=== PATIENT | female | born 1945 | race Caucasian/White ===

== ENCOUNTER 2021-05-16 09:51 | Inpatient (IN) | payer OTHER ==
[~2021-05-16] VITALS: Ht 160 cm; Wt 53.5 kg
[~2021-05-16 09:51] MED LIST: ARICEPT10 MG PO; CEFDINIR300 MG PO; CHILDREN'S100 MG/54 PO; CRESTOR10 MG PO; ELIQUIS5 MG PO; LOPRESSOR 25 MG25 MG PO; LOPRESSOR50 MG PO; MULTAQ 400 MG400 MG PO; PROVENTIL HFA6.7 GM INH; SEROQUEL25 MG PO; SPIRIVA RESPIMAT4 GM INH
[2021-05-16 10:13] LABS: HEMOGLOBIN 9.6 gm/dl (12.3-15.3); RED BLOOD COUNT 3.04 M/UL (4.00-5.10); WHITE BLOOD COUNT 9.7 K/UL (4.5-11.0)
[2021-05-16] MEDS ORDERED: METOPROLOL TART25 MG PO (12:58)
[2021-05-16] MEDS ORDERED: CARBIDOPA-LEVO1 EAC7 PO (20:36)
[2021-05-16] MEDS ORDERED: ASPIRIN EC81 MG PO (20:37)
--- NOTE | 2021-05-17 04:20 | NUR ---
APPROX. 0240: NOTIFIED PRODUCT/INDUSTRY CONSULTANT FOR NEED OF PCU BED FOR PT. APPOX. 0326: ATTEMPTED TO CALL REPORT TO U. APPROX. 0342: CALLED REPORT TO [facility] ON PCU. AWAITING ROOM TO BE CLEANED. APPROX. [id number]: TRANSFERRED PT TO PCU, ROOM 6102. PT STABLE AT THE TIME OF TRANSFER.
--- NOTE | 2021-05-17 04:41 | NUR ---
PATIENT TRANSFERRED FROM MED SURG TO PCU FOR AFIB RVR. PATIENTS INTIAL VITALS WERE HR 92, BP: 97/70 (76), RR 16, O2 AT 94 ON 3.5 L. PATIENT IS ALERT AND ORIENTED AT THE TIME OF ASSESSMENT. BED ALARM IS ON. CLOSE TO NURSES STATION. BED IS LOCKED AND IN LOWEST POSITION. CALL LIGHT IS WITHIN REACH. NON SLIP SOCKS ARE ON. AMIO DRIP WAS STARTED AND PATIENT IS IN BED RESTING.
[2021-05-17 08:30] LABS: HEMOGLOBIN 9.7 gm/dl (12.3-15.3); RED BLOOD COUNT 3.06 M/UL (4.00-5.10); WHITE BLOOD COUNT 10.1 K/UL (4.5-11.0)
[2021-05-17 08:53] LABS: BUN/CREATININE RATIO 29 (0-10)
[2021-05-18 01:57] LABS: ACINETOBACTER BAUMANNII Not Detected (Negative); CANDIDA ALBICANS Not Detected (Negative); CANDIDA KRUSEI Not Detected (Negative); CANDIDA TROPICALIS Not Detected (Negative); ENTEROCOCCUS Not Detected (Negative); ESCHERICHIA COLI Not Detected (Negative); HAEMOPHILUS INFLUENZAE Not Detected (Negative); KLEBSIELLA OXYTOCA Not Detected (Negative); KLEBSIELLA PNEUMONIAE Not Detected (Negative); KPC-CARBAPENEM-RESISTANCE GENE Not Detected (Negative); PROTEUS Not Detected (Negative); PSEUDOMONAS AERUGINOSA Not Detected (Negative); SERRATIA MARCESANS Not Detected (Negative); STAPHYLOCOCCUS AUREUS Not Detected (Negative); STREP AGALACTIAE (GROUP B) Not Detected (Negative); STREP PYOGENES (GROUP A) Not Detected (Negative); STREPTOCOCCUS Not Detected (Negative); vanA/B (VANCOMYCIN RESIST GENE Not Detected (Negative)
[2021-05-18 03:11] LABS: mecA (METHICILLIN RESIST GENE DETECTED (Negative)
[2021-05-18 03:12] LABS: STAPHYLOCOCCUS DETECTED (Negative)
[2021-05-18 04:41] LABS: HEMOGLOBIN 9.4 gm/dl (12.3-15.3); RED BLOOD COUNT 3.01 M/UL (4.00-5.10); WHITE BLOOD COUNT 10.1 K/UL (4.5-11.0)
--- NOTE | 2021-05-18 13:50 | NUR ---
PATIENT HEART RATE 110-120, AFIB. PATIENT TAKING PO AMIODARONE. AWARE. AWAITING ORDERS
--- NOTE | 2021-05-18 13:54 | NUR ---
MD PRESCOTT CALLED WITH NEW ORDERS
--- NOTE | 2021-05-18 14:21 | NUR ---
DIG GIVEN PER MD ORDERS. PATIENT HEART RATE AT 109 PRESENTLY WILL CONTINUE TO MONITOR
[2021-05-20 03:21] LABS: BUN/CREATININE RATIO 20 (0-10)
[2021-05-21 02:52] LABS: BUN/CREATININE RATIO 17 (0-10)
[2021-05-21] MEDS ORDERED: AMIODARONE HCL200 MG PO (14:24)
[2021-05-21] MEDS ORDERED: METOPROLOL SUCC25 MG PO (14:24)
== END 2021-05-21 19:20 | disposition home health service (06) | DRG 291 ==
LOC: ER1 09:51 → CDU 11:57 → PROG CARE 11:57 → MED SURG 4 13:30 → PROG CARE 05-17 03:47
PROVIDERS: Emergency Medicine; Physician Assistant Medical; ADMIT Internal Medicine
PROC: 5A0945A Assistance with Respiratory Ventilation, 24-96 Consecutive Hours, High Flow/Velocity Cannula (ICD-10-PCS; principal; 2021-05-17)
DX: I13.0 Hypertensive heart and chronic kidney disease with heart failure and stage 1 through stage 4 chronic kidney disease, or unspecified chronic kidney disease (principal); J96.01 Acute respiratory failure with hypoxia; Z20.822 Contact with and (suspected) exposure to COVID-19; I50.43 Acute on chronic combined systolic (congestive) and diastolic (congestive) heart failure; J90 Pleural effusion, not elsewhere classified; E87.2 Acidosis; L89.152 Pressure ulcer of sacral region, stage 2; N18.30 Chronic kidney disease, stage 3 unspecified; J44.9 Chronic obstructive pulmonary disease, unspecified; E88.09 Other disorders of plasma-protein metabolism, not elsewhere classified; E87.6 Hypokalemia; E83.42 Hypomagnesemia; I42.9 Cardiomyopathy, unspecified; D63.1 Anemia in chronic kidney disease; I48.0 Paroxysmal atrial fibrillation; G20 Parkinson's disease; F02.80 Dementia in other diseases classified elsewhere, unspecified severity, without behavioral disturbance, psychotic disturbance, mood disturbance, and anxiety; Z74.01 Bed confinement status; Z79.01 Long term (current) use of anticoagulants; Z79.82 Long term (current) use of aspirin; Z85.3 Personal history of malignant neoplasm of breast; Z86.16 Personal history of COVID-19; I25.2 Old myocardial infarction
CPT/HCPCS: 36415; 36600; 71045; 80048; 80053; 80202; 82550; 82553; 82803; 83605; 83690; 83735; 83874; 83880; 84100; 84439; 84443; 84484; 85025; 85027; 85610; 85730; 87040; 87077; 87150; 87186; 93005; 94640; 94664; 94760; 96374; 96375; 97110-GP-CQ; 97162; 97530-GP-CQ; 99285; A6212; G0378; J1160; J1940; J3370; J3475; J7060; J7070; U0002